=== PATIENT | male | born 1990 | race Caucasian/White ===

== ENCOUNTER 2020-01-20 08:23 | Inpatient (IN) | payer OTHER ==
--- NOTE | 2020-01-20 08:57 | BHS.RME ---
Substance Use & Tx History - Substance Use History Heroin Substance amount: 2- 10 bags Frequency of use: Daily Substance route: Injection (ex: intravenous or skin popping) Date of Last Use: 01/20/20 Nicotine Substance amount: 1 pack Frequency of use: Daily Substance route: Smoking Date of Last Use: 01/20/20 Physical/Psych/Mental Status - Behavior General Behavior: Increased activity (restlessness, agitation) Eye Contact: Normal - Cooperativeness Cooperativeness: Cooperative - Thinking Thought Processes: Tight, Logical, Goal Directed - Physical Health Problems Is patient presently having any pain?: No Does patient presently have any injuries (include location): No Does patient currently have a fever: No Is patient : No COWS - Scale Resting Pulse: 0= [place] 80 or Below Sweatin= Chills/Flushing Restless Observation: 1= Difficult to Sit Still Pupil Size: 1= Pupils >than Normal Bone or Joint Aches: 1= Mild Discomfort Runny Nose/ Eye Tearin= Runny Nose/Eyes GI Upset > 30mins: 2= Nausea/Diarrhea Tremor Observation: 1= Tremor [place], Not Seen Yawning Observation: 1= 1-2x During Session Anxiety or Irritability: 1=Feels Anxious/Irritable Goose Flesh Skin: 3=Piloerection COWS Score: 14
[2020-01-20 09:06] VITALS: BMI 21.1
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
[2020-01-20] MEDS ORDERED: BISMUTH SUBSALICYLATE 524 MG/30 ML UD PO PRN (09:49)
[2020-01-20] MEDS ORDERED: MAG HYDROX/AL HYDROX/SIMETH 30 ML UNIT-DOSE CUP PO PRN (09:49)
[2020-01-20] MEDS ORDERED: MAGNESIUM HYDROX 2400MG/30ML ORAL SUSPENSION 30 ML CUP PO PRN (09:49)
[2020-01-20] MEDS ORDERED: MENTHOL/PHENOL 1 EACH UD MM PRN (09:49)
[2020-01-20] MEDS ORDERED: ONDANSETRON *ODT* 4 MG TABLET SL PRN (09:49)
[2020-01-20] MEDS ORDERED: NICOTINE POLACRILEX 2 MG GUM BUC PRN (09:49)
[2020-01-20] MEDS ORDERED: MAGNESIUM CITRATE 300 ML BOTTLE PO PRN (09:49)
[2020-01-20] MEDS ORDERED: ACETAMINOPHEN 325 MG TABLET (FP) PO PRN ×2 (09:49)
[2020-01-20] MEDS ORDERED: cloNIDine HCL 0.1 MG TABLET PO PRN (09:49)
[2020-01-20] MEDS ORDERED: IBUPROFEN 400 MG TABLET (FP) PO PRN (09:49)
[2020-01-20] MEDS ORDERED: hydrOXYzine PAMOATE 25 MG CAPSULE (FP) PO SCH (10:00)
[2020-01-20] MEDS: PRENATAL VITAMINS W/ FOLIC ACID TABLET (FP) PO SCH (10:42)
[2020-01-20] MEDS: NICOTINE 7 MG/24 HOURS TOPICAL PATCH TD SCH (10:42)
[2020-01-20] MEDS ORDERED: METHADONE HCL 10 MG TABLET (FOR DETOX USE ONLY) PO ONE (10:45)
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
--- NOTE | 2020-01-20 12:41 | EKG ---
Test Reason : Blood Pressure : / mmHG Vent. Rate : 066 BPM Atrial Rate : 066 BPM P-R Int : 134 ms QRS Dur : 098 ms QT Int : 412 ms P-R-T Axes : 018 073 049 degrees QTc Int : 431 ms NORMAL SINUS RHYTHM VOLTAGE CRITERIA FOR LEFT VENTRICULAR HYPERTROPHY NO PREVIOUS ECGS AVAILABLE Confirmed by CLEMENTINA RAMIREZ MD ([id number]) on 01/20/2020 12:40:59 PM Referred By: Confirmed By:CLEMENTINA RAMIREZ MD
[2020-01-20 14:03] LABS: HEMATOCRIT 49.6 % (35.4-49); HEMOGLOBIN 16.9 GM/dL (11.7-16.9); MCH 31.3 pg (25.7-33.7); MEAN CELL VOLUME 92.1 fl (80-96); MEAN PLT VOLUME 8.4 fl (7.5-11.1); PLATELET COUNT 390 K/MM3 (134-434); RBC 5.39 M/mm3 (4.00-5.60); RDW 14.2 % (11.9-15.9)
[2020-01-20 14:31] LABS: ALBUMIN 4.2 g/dl (3.4-5.0); BILIRUBIN,TOTAL 0.4 mg/dL (0.2-1); BLOOD UREA NITROGEN 9.4 mg/dL (7-18); CALCIUM 9.5 mg/dL (8.5-10.1); CREATININE 0.9 mg/dL (0.55-1.3); POTASSIUM 4.2 mmol/L (3.5-5.1); TOT PROT 8.4 g/dl (6.4-8.2)
[2020-01-20] MEDS: busPIRone HCL 10 MG TABLET (FP) PO SCH (22:37)
[2020-01-20] MEDS: MELATONIN 5 MG TABLETS PO SCH (22:37)
[2020-01-20] MEDS: THIAMINE HCL 100 MG TABLET (FP) PO SCH (22:37)
[2020-01-21] MEDS ORDERED: METHADONE HCL 10 MG TABLET (FOR DETOX USE ONLY) ONE (08:39)
[2020-01-21] MEDS ORDERED: METHADONE HCL 5 MG TABLET (FOR DETOX USE ONLY) ONE (08:39)
[2020-01-21] MEDS ORDERED: METHADONE (DETOX) 20 MG, METHADONE (DETOX) 5 MG PO ONE (10:00)
[2020-01-21] MEDS: NICOTINE 7 MG/24 HOURS TOPICAL PATCH TD SCH (10:13)
[2020-01-21] MEDS: busPIRone HCL 10 MG TABLET (FP) PO SCH ×2 (10:14→23:26)
[2020-01-21] MEDS: PRENATAL VITAMINS W/ FOLIC ACID TABLET (FP) PO SCH (10:14)
--- NOTE | 2020-01-21 11:21 | PN ---
BHS COWS - Scale Resting Pulse: 0= [place] 80 or Below Sweatin= Chills/Flushing Restless Observation: 1= Difficult to Sit Still Pupil Size: 0= Normal to Room Light Bone or Joint Aches: 2= Severe Diffuse Aches Runny Nose/ Eye Tearin= Nasal Congestion GI Upset > 30mins: 0= None Tremor Observation of Outstretched Hands: 2= Slight Tremor Visible Yawning Observation: 0= None Anxiety or Irritability: 2=Irritable/Anxious Goose Flesh Skin: 0=Smooth Skin COWS Score: 9 BHS Progress Note (SOAP) Subjective: Complaints of tremors, sweats, anxiety, joints ache and yawning. Objective: 01/21/20 11:20 Vital Signs 01/21/20 01/21/20 05:46 08:58 Temperature 99.5 F 98.6 F Pulse Rate 67 76 Respiratory 18 18 Rate Blood Pressure 107/53 L 114/57 L O2 Sat by Pulse 97 97 Oximetry (%) Laboratory Last Values WBC 8.0 K/mm3 (4.0-10.0) 01/20/20 09:20 RBC 5.39 M/mm3 (4.00-5.60) 01/20/20 09:20 Hgb 16.9 GM/dL (11.7-16.9) 01/20/20 09:20 Hct 49.6 % (35.4-49) H 01/20/20 09:20 MCV 92.1 fl (80-96) 01/20/20 09:20 MCH 31.3 pg (25.7-33.7) 01/20/20 09:20 MCHC 34.0 g/dl (32.0-35.9) 01/20/20 09:20 RDW 14.2 % (11.9-15.9) 01/20/20 09:20 Plt Count 390 K/MM3 (134-434) 01/20/20 09:20 MPV 8.4 fl (7.5-11.1) 01/20/20 09:20 Sodium 138 mmol/L (136-145) 01/20/20 09:20 Potassium 4.2 mmol/L (3.5-5.1) 01/20/20 09:20 Chloride 104 mmol/L (98-107) 01/20/20 09:20 Carbon Dioxide 29 mmol/L (21-32) 01/20/20 09:20 Anion Gap 4 MMOL/L (8-16) L 01/20/20 09:20 BUN 9.4 mg/dL (7-18) 01/20/20 09:20 Creatinine 0.9 mg/dL (0.55-1.3) 01/20/20 09:20 Est GFR (CKD-EPI)AfAm 131.44 01/20/20 09:20 Est GFR (CKD-EPI)NonAf 113.41 01/20/20 09:20 Random Glucose 92 mg/dL (74-106) 01/20/20 09:20 Calcium 9.5 mg/dL (8.5-10.1) 01/20/20 09:20 Total Bilirubin 0.4 mg/dL (0.2-1) 01/20/20 09:20 AST 20 U/L (15-37) 01/20/20 09:20 ALT 39 U/L (13-61) 01/20/20 09:20 Alkaline Phosphatase 60 U/L (45-117) 01/20/20 09:20 Total Protein 8.4 g/dl (6.4-8.2) H 01/20/20 09:20 Albumin 4.2 g/dl (3.4-5.0) 01/20/20 09:20 Syphilis Serology Non-reactive (NONREACTIVE) 01/20/20 09:20 Labs noted. Assessment: 01/21/20 11:20 Alert and oriented x 3, in no acute distress. Full ROM, ambulating in the unit without assistance. Skin was to touch with any lesions. Withdrawal symptoms. Plan: Continue detox protocol.
[2020-01-21] MEDS: diazePAM 5 MG TABLET PO PRN (23:25)
[2020-01-21] MEDS: THIAMINE HCL 100 MG TABLET (FP) PO SCH (23:26)
[2020-01-21] MEDS: MELATONIN 5 MG TABLETS PO SCH (23:27)
[2020-01-22] MEDS ORDERED: METHADONE HCL 10 MG TABLET (FOR DETOX USE ONLY) PO ONE (10:00)
[2020-01-22] MEDS: diazePAM 5 MG TABLET PO PRN ×3 (10:13→23:04)
[2020-01-22] MEDS: PRENATAL VITAMINS W/ FOLIC ACID TABLET (FP) PO SCH (10:14)
[2020-01-22] MEDS: busPIRone HCL 10 MG TABLET (FP) PO SCH ×2 (10:14→22:24)
[2020-01-22] MEDS: NICOTINE 7 MG/24 HOURS TOPICAL PATCH TD SCH (10:14)
[2020-01-22] MEDS: METHOCARBAMOL 500 MG TABLET PO PRN ×2 (14:42→22:24)
--- NOTE | 2020-01-22 16:50 | PN ---
BHS COWS - Scale Resting Pulse: 0= [place] 80 or Below Sweatin= Chills/Flushing Restless Observation: 0= Sits Still Pupil Size: 0= Normal to Room Light Bone or Joint Aches: 2= Severe Diffuse Aches Runny Nose/ Eye Tearin= Runny Nose/Eyes GI Upset > 30mins: 2= Nausea/Diarrhea Tremor Observation of Outstretched Hands: 0= None Yawning Observation: 0= None Anxiety or Irritability: 1=Feels Anxious/Irritable Goose Flesh Skin: 0=Smooth Skin COWS Score: 8 BHS Progress Note (SOAP) Subjective: Restless legs, chills Objective: 01/22/20 16:49 Last Vital Signs Temp Pulse Resp BP Pulse Ox 97.7 F 73 17 129/63 99 01/22/20 12:26 01/22/20 12:26 01/22/20 12:26 01/22/20 12:01/22/20 09:11 Laboratory Tests 01/20/20 01/20/20 01/20/20 09:20 09:20 09:20 WBC 8.0 RBC 5.39 Hgb 16.9 Hct 49.6 H MCV 92.1 MCH 31.3 MCHC 34.0 RDW 14.2 Plt Count 390 MPV 8.4 Sodium 138 Potassium 4.2 Chloride 104 Carbon Dioxide 29 Anion Gap 4 L BUN 9.4 Creatinine 0.9 Est GFR (CKD-EPI)AfAm 131.44 Est GFR (CKD-EPI)NonAf 113.41 Random Glucose 92 Calcium 9.5 Total Bilirubin 0.4 AST 20 ALT 39 Alkaline Phosphatase 60 Total Protein 8.4 H Albumin 4.2 Syphilis Serology Non-reactive COVID-19 (ANISHA) 01/20/20 10:25 WBC RBC Hgb Hct MCV MCH MCHC RDW Plt Count MPV Sodium Potassium Chloride Carbon Dioxide Anion Gap BUN Creatinine Est GFR (CKD-EPI)AfAm Est GFR (CKD-EPI)NonAf Random Glucose Calcium Total Bilirubin AST ALT Alkaline Phosphatase Total Protein Albumin Syphilis Serology COVID-19 (ANISHA) Not detected Labs reviewed Assessment: 01/22/20 16:49 Withdrawal sxs Plan: Continue detox Encourage PO water intake
[2020-01-22] MEDS: THIAMINE HCL 100 MG TABLET (FP) PO SCH (22:24)
[2020-01-22] MEDS: MELATONIN 5 MG TABLETS PO SCH (22:24)
[2020-01-23] MEDS: diazePAM 5 MG TABLET PO PRN ×4 (05:44→18:19)
[2020-01-23] MEDS ORDERED: METHADONE HCL 5 MG TABLET (FOR DETOX USE ONLY) ONE (08:37)
[2020-01-23] MEDS ORDERED: METHADONE HCL 10 MG TABLET (FOR DETOX USE ONLY) ONE (08:37)
--- NOTE | 2020-01-23 09:55 | PN ---
BHS COWS - Scale Resting Pulse: 1= [place] 81-100 Sweatin= Chills/Flushing Restless Observation: 1= Difficult to Sit Still Pupil Size: 0= Normal to Room Light Bone or Joint Aches: 1= Mild Discomfort Runny Nose/ Eye Tearin= Nasal Congestion GI Upset > 30mins: 0= None Tremor Observation of Outstretched Hands: 1= Tremor [place], Not Seen Yawning Observation: 0= None Anxiety or Irritability: 1=Feels Anxious/Irritable Goose Flesh Skin: 0=Smooth Skin COWS Score: 7 BHS Progress Note (SOAP) Subjective: sweats shakes interrupted sleep body aches irritable agitation chills Objective: 01/23/20 09:55 Vital Signs Temperature 98.4 F 01/23/20 08:24 Pulse Rate 90 01/23/20 08:24 Respiratory Rate 18 01/23/20 08:24 Blood Pressure 123/88 01/23/20 08:24 O2 Sat by Pulse Oximetry (%) 97 01/23/20 08:24 Laboratory Tests 01/20/20 01/20/20 01/20/20 09:20 09:20 09:20 WBC 8.0 RBC 5.39 Hgb 16.9 Hct 49.6 H MCV 92.1 MCH 31.3 MCHC 34.0 RDW 14.2 Plt Count 390 MPV 8.4 Sodium 138 Potassium 4.2 Chloride 104 Carbon Dioxide 29 Anion Gap 4 L BUN 9.4 Creatinine 0.9 Est GFR (CKD-EPI)AfAm 131.44 Est GFR (CKD-EPI)NonAf 113.41 Random Glucose 92 Calcium 9.5 Total Bilirubin 0.4 AST 20 ALT 39 Alkaline Phosphatase 60 Total Protein 8.4 H Albumin 4.2 Syphilis Serology Non-reactive COVID-19 (ANISHA) 01/20/20 10:25 WBC RBC Hgb Hct MCV MCH MCHC RDW Plt Count MPV Sodium Potassium Chloride Carbon Dioxide Anion Gap BUN Creatinine Est GFR (CKD-EPI)AfAm Est GFR (CKD-EPI)NonAf Random Glucose Calcium Total Bilirubin AST ALT Alkaline Phosphatase Total Protein Albumin Syphilis Serology COVID-19 (ANISHA) Not detected labs noted aaox3 ambulating no acute distress Assessment: 01/23/20 09:56 withdrawals Plan: continue detox increase fluids
[2020-01-23] MEDS ORDERED: METHADONE (DETOX) 10 MG, METHADONE (DETOX) 5 MG PO ONE (10:00)
[2020-01-23] MEDS: NICOTINE 7 MG/24 HOURS TOPICAL PATCH TD SCH (10:07)
[2020-01-23] MEDS: busPIRone HCL 10 MG TABLET (FP) PO SCH ×2 (10:07→22:00)
[2020-01-23] MEDS: PRENATAL VITAMINS W/ FOLIC ACID TABLET (FP) PO SCH (10:07)
[2020-01-23] MEDS: METHOCARBAMOL 500 MG TABLET PO PRN (14:14)
[2020-01-23] MEDS ORDERED: COLLOIDAL OATMEAL 1 BAR EACH TP PRN (17:54)
[2020-01-23] MEDS: hydrOXYzine PAMOATE 25 MG CAPSULE (FP) PO PRN (18:19)
[2020-01-23] MEDS: THIAMINE HCL 100 MG TABLET (FP) PO SCH (22:00)
[2020-01-23] MEDS: MELATONIN 5 MG TABLETS PO SCH (22:01)
[2020-01-24] MEDS: diazePAM 5 MG TABLET PO PRN (05:55)
[2020-01-24] MEDS: METHOCARBAMOL 500 MG TABLET PO PRN (06:28)
[2020-01-24] MEDS: hydrOXYzine PAMOATE 25 MG CAPSULE (FP) PO PRN (08:51)
[2020-01-24] MEDS: busPIRone HCL 10 MG TABLET (FP) PO SCH (08:53)
--- NOTE | 2020-01-24 08:53 | DS ---
[facility] Detox Discharge Summary Admission Date: 01/20/20 Discharge Date: 01/24/20 - History Present History: Alcohol Dependence, Opioid Dependence, Sedative Dependence - Physical Exam Results Vital Signs: Vital Signs Temperature 96.9 F L 01/24/20 06:20 Pulse Rate 72 01/24/20 06:20 Respiratory Rate 18 01/24/20 06:20 Blood Pressure 111/79 01/24/20 06:20 O2 Sat by Pulse Oximetry (%) 95 01/24/20 06:20 Pertinent Admission Physical Exam Findings: Vital Signs Temperature 96.9 F L 01/24/20 06:20 Pulse Rate 72 01/24/20 06:20 Respiratory Rate 18 01/24/20 06:20 Blood Pressure 111/79 01/24/20 06:20 O2 Sat by Pulse Oximetry (%) 95 01/24/20 06:20 Laboratory Tests 01/20/20 01/20/20 01/20/20 09:20 09:20 09:20 WBC 8.0 RBC 5.39 Hgb 16.9 Hct 49.6 H MCV 92.1 MCH 31.3 MCHC 34.0 RDW 14.2 Plt Count 390 MPV 8.4 Sodium 138 Potassium 4.2 Chloride 104 Carbon Dioxide 29 Anion Gap 4 L BUN 9.4 Creatinine 0.9 Est GFR (CKD-EPI)AfAm 131.44 Est GFR (CKD-EPI)NonAf 113.41 Random Glucose 92 Calcium 9.5 Total Bilirubin 0.4 AST 20 ALT 39 Alkaline Phosphatase 60 Total Protein 8.4 H Albumin 4.2 Syphilis Serology Non-reactive COVID-19 (ANISHA) 01/20/20 10:25 WBC RBC Hgb Hct MCV MCH MCHC RDW Plt Count MPV Sodium Potassium Chloride Carbon Dioxide Anion Gap BUN Creatinine Est GFR (CKD-EPI)AfAm Est GFR (CKD-EPI)NonAf Random Glucose Calcium Total Bilirubin AST ALT Alkaline Phosphatase Total Protein Albumin Syphilis Serology COVID-19 (ANISHA) Not detected labs noted aaox3 ambulating no acute distress lungs CTA - Treatment Hospital Course: Detox Protocol Followed, Detoxed Safely, Responded well, Discharged Condition Good, Rehab Referral Accepted - Medication Discharge Medications: Ambulatory Orders Bupropion HCl [Wellbutrin Sr] 150 mg PO BID 01/20/20 Buspirone HCl [Buspar -] 10 mg PO BID 01/20/20 - Diagnosis (1) Alcohol use disorder, mild, abuse Current Visit: Yes Status: Acute (2) MDD (major depressive disorder) Current Visit: Yes Status: Acute (3) Nicotine dependence Current Visit: Yes Status: Acute Qualifiers: Nicotine product type: cigarettes Substance use status: uncomplicated Qualified Code(s): F17.210 - Nicotine dependence, cigarettes, uncomplicated (4) Opioid dependence with withdrawal Current Visit: Yes Status: Chronic (5) Sedative, hypnotic or anxiolytic use disorder, mild, abuse Current Visit: Yes Status: Chronic (6) Substance induced mood disorder Current Visit: Yes Status: Acute (7) Substance-induced sleep disorder Current Visit: Yes Status: Acute (8) Depressive disorder Current Visit: Yes Status: Chronic - AMA Did Patient Leave Against Medical Advice: No
[2020-01-24] MEDS ORDERED: METHADONE HCL 10 MG TABLET (FOR DETOX USE ONLY) PO ONE ×2 (09:00→10:00)
[2020-01-24 09:13] VITALS: BP 133/78; PULSE 102; TEMP 98.1
[2020-01-24] MEDS: PRENATAL VITAMINS W/ FOLIC ACID TABLET (FP) PO SCH (09:20)
[2020-01-24] MEDS: NICOTINE 7 MG/24 HOURS TOPICAL PATCH TD SCH (09:20)
[2020-01-25] MEDS ORDERED: METHADONE HCL 5 MG TABLET (FOR DETOX USE ONLY) PO ONE (06:00)
== END 2020-01-24 09:15 | disposition home or self-care (01) | DRG 773 ==
LOC: YASAS 08:23 → Y6N 09:15
PROVIDERS: ADMIT Allergy & Immunology; ATTEND Allergy & Immunology
PROC: HZ2ZZZZ Detoxification Services for Substance Abuse Treatment (ICD-10-PCS; principal; 2020-01-20)
DX: F11.23 Opioid dependence with withdrawal (principal); F10.10 Alcohol abuse, uncomplicated; F13.10 Sedative, hypnotic or anxiolytic abuse, uncomplicated; F14.10 Cocaine abuse, uncomplicated; F12.20 Cannabis dependence, uncomplicated; F19.282 Other psychoactive substance dependence with psychoactive substance-induced sleep disorder; F19.24 Other psychoactive substance dependence with psychoactive substance-induced mood disorder; F32.9 Major depressive disorder, single episode, unspecified; Z87.81 Personal history of (healed) traumatic fracture; Z56.0 Unemployment, unspecified
CPT/HCPCS: 36415; 71046-TC-FY; 80053; 85027; 86780; 93005; 93010; U0003

== ENCOUNTER 2020-04-16 08:14 | Inpatient (IN) | payer OTHER ==
[2020-04-16 08:56] VITALS: BMI 23.1
[2020-04-16] MEDS ORDERED: MAG HYDROX/AL HYDROX/SIMETH 30 ML UNIT-DOSE CUP PO PRN (09:22)
[2020-04-16] MEDS ORDERED: MAGNESIUM CITRATE 300 ML BOTTLE PO PRN (09:22)
[2020-04-16] MEDS ORDERED: MAGNESIUM HYDROX 2400MG/30ML ORAL SUSPENSION 30 ML CUP PO PRN (09:22)
[2020-04-16] MEDS ORDERED: METHOCARBAMOL 500 MG TABLET PO PRN (09:22)
[2020-04-16] MEDS ORDERED: ACETAMINOPHEN 325 MG TABLET (FP) PO PRN ×2 (09:22)
[2020-04-16] MEDS ORDERED: cloNIDine HCL 0.1 MG TABLET PO PRN (09:22)
[2020-04-16] MEDS ORDERED: NICOTINE POLACRILEX 2 MG GUM BUC PRN (09:22)
[2020-04-16] MEDS ORDERED: BISMUTH SUBSALICYLATE 524 MG/30 ML UD PO PRN (09:22)
[2020-04-16] MEDS ORDERED: IBUPROFEN 400 MG TABLET (FP) PO PRN (09:22)
[2020-04-16] MEDS ORDERED: MENTHOL/PHENOL 1 EACH UD MM PRN (09:22)
[2020-04-16] MEDS ORDERED: ONDANSETRON *ODT* 4 MG TABLET SL PRN (09:22)
[2020-04-16] MEDS ORDERED: METHADONE HCL 10 MG TABLET (FOR DETOX USE ONLY) PO ONE (10:00)
[2020-04-16] MEDS: hydrOXYzine PAMOATE 25 MG CAPSULE (FP) PO SCH ×4 (10:44→22:53)
[2020-04-16] MEDS: PRENATAL VITAMINS W/ FOLIC ACID TABLET (FP) PO SCH (10:44)
[2020-04-16] MEDS: NICOTINE 21 MG/24 HOURS TOPICAL PATCH TD SCH (10:44)
[2020-04-16 14:16] LABS: HEMATOCRIT 46.7 % (35.4-49); HEMOGLOBIN 15.3 GM/dL (11.7-16.9); MCH 30.3 pg (25.7-33.7); MCHC 32.9 g/dl (32.0-35.9); MEAN CELL VOLUME 92.1 fl (80-96); MEAN PLT VOLUME 8.4 fl (7.5-11.1); PLATELET COUNT 305 K/MM3 (134-434); RBC 5.07 M/mm3 (4.00-5.60); RDW 14.4 % (11.9-15.9); WHITE BLOOD COUNT 10.5 K/mm3 (4.0-10.0)
[2020-04-16 14:19] LABS: CALCIUM 9.4 mg/dL (8.5-10.1)
[2020-04-16 14:20] LABS: BLOOD UREA NITROGEN 16.1 mg/dL (7-18)
[2020-04-16 14:23] LABS: CREATININE 0.9 mg/dL (0.55-1.3)
[2020-04-16 14:24] LABS: TOT PROT 7.6 g/dl (6.4-8.2)
[2020-04-16] MEDS: busPIRone HCL 10 MG TABLET (FP) PO SCH (22:52)
[2020-04-16] MEDS: MELATONIN 5 MG TABLETS PO SCH (22:52)
[2020-04-16] MEDS: THIAMINE HCL 100 MG TABLET (FP) PO SCH (22:53)
[2020-04-17] MEDS: hydrOXYzine PAMOATE 25 MG CAPSULE (FP) PO SCH ×5 (06:40→23:14)
[2020-04-17] MEDS ORDERED: METHADONE HCL 10 MG TABLET (FOR DETOX USE ONLY) ONE (09:44)
[2020-04-17] MEDS ORDERED: METHADONE HCL 5 MG TABLET (FOR DETOX USE ONLY) ONE (09:44)
[2020-04-17] MEDS ORDERED: METHADONE (DETOX) 20 MG, METHADONE (DETOX) 5 MG PO ONE (10:00)
[2020-04-17] MEDS: NICOTINE 21 MG/24 HOURS TOPICAL PATCH TD SCH (10:50)
[2020-04-17] MEDS: PRENATAL VITAMINS W/ FOLIC ACID TABLET (FP) PO SCH (10:50)
[2020-04-17] MEDS: busPIRone HCL 10 MG TABLET (FP) PO SCH ×2 (10:50→23:13)
[2020-04-17] MEDS: THIAMINE HCL 100 MG TABLET (FP) PO SCH (23:14)
[2020-04-17] MEDS: MELATONIN 5 MG TABLETS PO SCH (23:14)
[2020-04-18] MEDS: hydrOXYzine PAMOATE 25 MG CAPSULE (FP) PO SCH ×5 (07:14→22:24)
[2020-04-18] MEDS ORDERED: METHADONE HCL 10 MG TABLET (FOR DETOX USE ONLY) PO ONE (10:00)
[2020-04-18] MEDS: PRENATAL VITAMINS W/ FOLIC ACID TABLET (FP) PO SCH (10:29)
[2020-04-18] MEDS: NICOTINE 21 MG/24 HOURS TOPICAL PATCH TD SCH (10:29)
[2020-04-18] MEDS: busPIRone HCL 10 MG TABLET (FP) PO SCH ×2 (10:29→22:24)
[2020-04-18] MEDS: diazePAM 5 MG TABLET PO PRN ×3 (10:31→22:23)
[2020-04-18 11:00] LABS: HEMATOCRIT 45.9 % (35.4-49); HEMOGLOBIN 15.2 GM/dL (11.7-16.9); MCH 30.4 pg (25.7-33.7); MCHC 33.1 g/dl (32.0-35.9); MEAN PLT VOLUME 8.6 fl (7.5-11.1); PLATELET COUNT 258 K/MM3 (134-434); RBC 4.99 M/mm3 (4.00-5.60); RDW 14.7 % (11.9-15.9); WHITE BLOOD COUNT 8.4 K/mm3 (4.0-10.0)
[2020-04-18] MEDS: THIAMINE HCL 100 MG TABLET (FP) PO SCH (22:23)
[2020-04-18] MEDS: MELATONIN 5 MG TABLETS PO SCH (22:24)
[2020-04-19] MEDS: hydrOXYzine PAMOATE 25 MG CAPSULE (FP) PO SCH ×5 (06:25→22:48)
[2020-04-19] MEDS: diazePAM 5 MG TABLET PO PRN ×4 (07:26→20:22)
[2020-04-19] MEDS ORDERED: METHADONE HCL 5 MG TABLET (FOR DETOX USE ONLY) ONE (09:19)
[2020-04-19] MEDS ORDERED: METHADONE HCL 10 MG TABLET (FOR DETOX USE ONLY) ONE (09:19)
[2020-04-19] MEDS ORDERED: METHADONE (DETOX) 10 MG, METHADONE (DETOX) 5 MG PO ONE (10:00)
[2020-04-19] MEDS: PRENATAL VITAMINS W/ FOLIC ACID TABLET (FP) PO SCH (10:31)
[2020-04-19] MEDS: busPIRone HCL 10 MG TABLET (FP) PO SCH ×2 (10:31→22:48)
[2020-04-19] MEDS: NICOTINE 21 MG/24 HOURS TOPICAL PATCH TD SCH (10:31)
[2020-04-19] MEDS: THIAMINE HCL 100 MG TABLET (FP) PO SCH (21:00)
[2020-04-19] MEDS: MELATONIN 5 MG TABLETS PO SCH (22:48)
[2020-04-20] MEDS: diazePAM 5 MG TABLET PO PRN (05:35)
[2020-04-20] MEDS: hydrOXYzine PAMOATE 25 MG CAPSULE (FP) PO SCH ×2 (05:35→09:24)
[2020-04-20] MEDS: busPIRone HCL 10 MG TABLET (FP) PO SCH (09:24)
[2020-04-20] MEDS: NICOTINE 21 MG/24 HOURS TOPICAL PATCH TD SCH (09:25)
[2020-04-20] MEDS: PRENATAL VITAMINS W/ FOLIC ACID TABLET (FP) PO SCH (09:25)
[2020-04-20 09:34] VITALS: BP 127/75; PULSE 110; TEMP 98
[2020-04-20] MEDS ORDERED: METHADONE HCL 10 MG TABLET (FOR DETOX USE ONLY) PO ONE (10:00)
[2020-04-21] MEDS ORDERED: METHADONE HCL 5 MG TABLET (FOR DETOX USE ONLY) PO ONE (06:00)
== END 2020-04-20 11:00 | disposition home or self-care (01) | DRG 773 ==
LOC: YASAS 08:14 → Y6N 09:11
PROVIDERS: ADMIT Allergy & Immunology; ATTEND Allergy & Immunology
PROC: HZ2ZZZZ Detoxification Services for Substance Abuse Treatment (ICD-10-PCS; principal; 2020-04-16)
DX: F11.23 Opioid dependence with withdrawal (principal); F13.230 Sedative, hypnotic or anxiolytic dependence with withdrawal, uncomplicated; F14.20 Cocaine dependence, uncomplicated; F10.10 Alcohol abuse, uncomplicated; F17.210 Nicotine dependence, cigarettes, uncomplicated; F31.9 Bipolar disorder, unspecified; F19.24 Other psychoactive substance dependence with psychoactive substance-induced mood disorder; F19.282 Other psychoactive substance dependence with psychoactive substance-induced sleep disorder; R76.11 Nonspecific reaction to tuberculin skin test without active tuberculosis
CPT/HCPCS: 36415; 80053; 82947; 85027; 86780; C9803; J0735; U0003

== ENCOUNTER 2020-05-10 09:33 | Inpatient (IN) | payer OTHER ==
[2020-05-10 10:12] VITALS: BMI 23.5
[2020-05-10] MEDS ORDERED: MENTHOL/PHENOL 1 EACH UD MM PRN (10:37)
[2020-05-10] MEDS ORDERED: METHOCARBAMOL 500 MG TABLET PO PRN (10:37)
[2020-05-10] MEDS ORDERED: ONDANSETRON *ODT* 4 MG TABLET SL PRN (10:37)
[2020-05-10] MEDS ORDERED: IBUPROFEN 400 MG TABLET (FP) PO PRN (10:37)
[2020-05-10] MEDS ORDERED: MAG HYDROX/AL HYDROX/SIMETH 30 ML UNIT-DOSE CUP PO PRN (10:37)
[2020-05-10] MEDS ORDERED: cloNIDine HCL 0.1 MG TABLET PO PRN (10:37)
[2020-05-10] MEDS ORDERED: NICOTINE POLACRILEX 2 MG GUM BUC PRN (10:37)
[2020-05-10] MEDS ORDERED: methaDONE HCL 10 MG TABLET (FOR DETOX USE ONLY) PO ONE (10:37)
[2020-05-10] MEDS ORDERED: MAGNESIUM CITRATE 300 ML BOTTLE PO PRN (10:37)
[2020-05-10] MEDS ORDERED: ACETAMINOPHEN 325 MG TABLET (FP) PO PRN ×2 (10:37)
[2020-05-10] MEDS ORDERED: MAGNESIUM HYDROX 2400MG/30ML ORAL SUSPENSION 30 ML CUP PO PRN (10:37)
[2020-05-10] MEDS ORDERED: BISMUTH SUBSALICYLATE 262 MG/15 ML BTL PO PRN (10:37)
[2020-05-10] MEDS: PRENATAL VITAMINS W/ FOLIC ACID TABLET (FP) PO SCH (11:47)
[2020-05-10] MEDS: hydrOXYzine PAMOATE 25 MG CAPSULE (FP) PO SCH ×3 (14:06→22:17)
[2020-05-10 16:20] LABS: HEMATOCRIT 40.3 % (35.4-49); HEMOGLOBIN 13.5 GM/dL (11.7-16.9); MCH 30.7 pg (25.7-33.7); MCHC 33.4 g/dl (32.0-35.9); MEAN CELL VOLUME 92.1 fl (80-96); MEAN PLT VOLUME 7.8 fl (7.5-11.1); PLATELET COUNT 329 K/MM3 (134-434); RBC 4.38 M/mm3 (4.00-5.60); RDW 14.3 % (11.9-15.9); WHITE BLOOD COUNT 8.1 K/mm3 (4.0-10.0)
[2020-05-10 16:33] LABS: BLOOD UREA NITROGEN 16.9 mg/dL (7-18); CREATININE 0.8 mg/dL (0.55-1.3)
[2020-05-10 16:34] LABS: ALBUMIN 3.6 g/dl (3.4-5.0)
[2020-05-10 16:35] LABS: TOT PROT 7.2 g/dl (6.4-8.2)
[2020-05-10 16:42] LABS: BILIRUBIN,TOTAL 0.4 mg/dL (0.2-1)
[2020-05-10] MEDS: THIAMINE HCL 100 MG TABLET (FP) PO SCH (22:17)
[2020-05-10] MEDS: MELATONIN 5 MG TABLETS PO SCH (22:17)
[2020-05-11] MEDS: hydrOXYzine PAMOATE 25 MG CAPSULE (FP) PO SCH ×5 (06:19→22:41)
[2020-05-11] MEDS ORDERED: methaDONE HCL 10 MG TABLET (FOR DETOX USE ONLY) ONE (09:03)
[2020-05-11] MEDS ORDERED: diazePAM 5 MG TABLET PO PRN (09:25)
[2020-05-11] MEDS: PRENATAL VITAMINS W/ FOLIC ACID TABLET (FP) PO SCH (09:26)
[2020-05-11] MEDS: NICOTINE 21 MG/24 HOURS TOPICAL PATCH TD SCH (10:15)
[2020-05-11] MEDS: MELATONIN 5 MG TABLETS PO SCH (22:41)
[2020-05-11] MEDS: THIAMINE HCL 100 MG TABLET (FP) PO SCH (22:41)
[2020-05-12] MEDS: hydrOXYzine PAMOATE 25 MG CAPSULE (FP) PO SCH ×5 (07:00→22:36)
[2020-05-12] MEDS: PRENATAL VITAMINS W/ FOLIC ACID TABLET (FP) PO SCH (09:25)
[2020-05-12] MEDS: NICOTINE 21 MG/24 HOURS TOPICAL PATCH TD SCH (09:25)
[2020-05-12] MEDS ORDERED: methaDONE HCL 10 MG TABLET (FOR DETOX USE ONLY) PO ONE (10:00)
[2020-05-12] MEDS: MELATONIN 5 MG TABLETS PO SCH (22:36)
[2020-05-12] MEDS: THIAMINE HCL 100 MG TABLET (FP) PO SCH (22:36)
[2020-05-13] MEDS: hydrOXYzine PAMOATE 25 MG CAPSULE (FP) PO SCH ×5 (06:19→22:00)
[2020-05-13] MEDS ORDERED: methaDONE HCL 10 MG TABLET (FOR DETOX USE ONLY) ONE (08:43)
[2020-05-13] MEDS: PRENATAL VITAMINS W/ FOLIC ACID TABLET (FP) PO SCH (09:20)
[2020-05-13] MEDS: NICOTINE 21 MG/24 HOURS TOPICAL PATCH TD SCH (09:20)
[2020-05-13] MEDS ORDERED: cloNIDine HCL 0.1 MG TABLET PO PRN (11:07)
[2020-05-13] MEDS: MELATONIN 5 MG TABLETS PO SCH (22:00)
[2020-05-13] MEDS: THIAMINE HCL 100 MG TABLET (FP) PO SCH (22:00)
[2020-05-14] MEDS: hydrOXYzine PAMOATE 25 MG CAPSULE (FP) PO SCH ×2 (05:59→09:10)
[2020-05-14] MEDS: PRENATAL VITAMINS W/ FOLIC ACID TABLET (FP) PO SCH (09:08)
[2020-05-14 09:10] VITALS: BP 120/80; PULSE 116; TEMP 97.8
[2020-05-14] MEDS: NICOTINE 21 MG/24 HOURS TOPICAL PATCH TD SCH (09:10)
[2020-05-14] MEDS ORDERED: methaDONE HCL 10 MG TABLET (FOR DETOX USE ONLY) PO ONE (10:00)
== END 2020-05-14 09:26 | disposition home or self-care (01) | DRG 773 ==
LOC: YASAS 09:33 → Y3N 10:28
PROVIDERS: ADMIT Allergy & Immunology; ATTEND Allergy & Immunology
PROC: HZ2ZZZZ Detoxification Services for Substance Abuse Treatment (ICD-10-PCS; principal; 2020-05-10)
DX: F11.23 Opioid dependence with withdrawal (principal); F14.20 Cocaine dependence, uncomplicated; F13.20 Sedative, hypnotic or anxiolytic dependence, uncomplicated; F12.20 Cannabis dependence, uncomplicated; F17.210 Nicotine dependence, cigarettes, uncomplicated; F41.9 Anxiety disorder, unspecified; F43.10 Post-traumatic stress disorder, unspecified; F32.9 Major depressive disorder, single episode, unspecified; R76.11 Nonspecific reaction to tuberculin skin test without active tuberculosis; R74.01 Elevation of levels of liver transaminase levels; S42.101D Fracture of unspecified part of scapula, right shoulder, subsequent encounter for fracture with routine healing; X58.XXXD Exposure to other specified factors, subsequent encounter; Z98.890 Other specified postprocedural states
CPT/HCPCS: 36415; 80053; 85027; 86780; C9803; U0003

== ENCOUNTER 2021-05-30 11:17 | Inpatient (IN) | payer OTHER ==
[2021-05-30] MEDS ORDERED: MAG HYDROX/AL HYDROX/SIMETH 30 ML UNIT-DOSE CUP PO PRN (12:39)
[2021-05-30] MEDS ORDERED: BISMUTH SUBSALICYLATE 262 MG/15 ML BTL PO PRN (12:39)
[2021-05-30] MEDS ORDERED: MAGNESIUM CITRATE 300 ML BOTTLE PO PRN (12:39)
[2021-05-30] MEDS ORDERED: ONDANSETRON *ODT* 4 MG TABLET SL PRN (12:39)
[2021-05-30] MEDS ORDERED: MENTHOL/PHENOL 1 EACH UD MM PRN (12:39)
[2021-05-30] MEDS ORDERED: MAGNESIUM HYDROX 2400MG/30ML ORAL SUSPENSION 30 ML CUP PO PRN (12:39)
[2021-05-30] MEDS ORDERED: ACETAMINOPHEN 325 MG TABLET (FP) PO PRN ×2 (12:39)
[2021-05-30] MEDS ORDERED: IBUPROFEN 400 MG TABLET (FP) PO PRN (12:39)
[2021-05-30 13:12] VITALS: BMI 24.7
[2021-05-30] MEDS ORDERED: diazePAM 5 MG TABLET ONE (15:02)
[2021-05-30] MEDS: diazePAM 5 MG TABLET PO PRN (15:07)
[2021-05-30] MEDS: hydrOXYzine PAMOATE 25 MG CAPSULE (FP) PO SCH ×3 (15:40→22:19)
[2021-05-30 17:06] LABS: HEMATOCRIT 43.6 % (35.4-49); HEMOGLOBIN 14.6 GM/dL (11.7-16.9); MCH 28.9 pg (25.7-33.7); MCHC 33.5 g/dl (32.0-35.9); MEAN CELL VOLUME 86.3 fl (80-96); MEAN PLT VOLUME 8.4 fl (7.5-11.1); PLATELET COUNT 273 10^3/uL (134-434); RBC 5.05 M/mm3 (4.00-5.60); RDW 15.7 % (11.9-15.9); WHITE BLOOD COUNT 7.3 K/mm3 (4.0-10.0)
[2021-05-30 17:11] LABS: CALCIUM 9.2 mg/dL (8.5-10.1)
[2021-05-30 17:12] LABS: ALBUMIN 4.1 g/dl (3.4-5.0); BLOOD UREA NITROGEN 5.8 mg/dL (7-18)
[2021-05-30 17:16] LABS: BILIRUBIN,TOTAL 0.3 mg/dL (0.2-1)
[2021-05-30 17:17] LABS: TOT PROT 7.6 g/dl (6.4-8.2)
[2021-05-30] MEDS: diazePAM 5 MG TABLET PO SCH ×2 (17:27→22:19)
[2021-05-30] MEDS: METHOCARBAMOL 500 MG TABLET PO PRN ×2 (17:27→17:32)
[2021-05-30] MEDS: NICOTINE 10 MG CARTRIDGE (INHALER) IH PRN (17:27)
[2021-05-30] MEDS ORDERED: MELATONIN 5 MG TABLETS PO SCH (22:00)
[2021-05-30] MEDS: MELATONIN 5 MG TABLETS PO SCH (22:19)
[2021-05-30] MEDS: MIRTAZAPINE 15 MG TABLET (FP) PO SCH (22:19)
[2021-05-30] MEDS: THIAMINE HCL 100 MG TABLET (FP) PO SCH (22:19)
[2021-05-31] MEDS ORDERED: methaDONE HCL 40 MG DISPERSABLE TABLET ONE (04:26)
[2021-05-31] MEDS ORDERED: methaDONE HCL 10 MG TABLET ONE (04:26)
[2021-05-31] MEDS: diazePAM 5 MG TABLET PO SCH ×4 (05:28→23:00)
[2021-05-31] MEDS: hydrOXYzine PAMOATE 25 MG CAPSULE (FP) PO SCH ×5 (05:28→23:00)
[2021-05-31] MEDS ORDERED: methaDONE HCL 10 MG TABLET PO SCH (06:00)
[2021-05-31] MEDS: METHOCARBAMOL 500 MG TABLET PO PRN ×3 (11:06→23:00)
[2021-05-31] MEDS: PRENATAL VITAMINS W/ FOLIC ACID TABLET (FP) PO SCH (11:06)
[2021-05-31] MEDS: NICOTINE 14 MG/24 HOURS TOPICAL PATCH TD SCH (11:06)
[2021-05-31] MEDS: diazePAM 5 MG TABLET PO PRN (13:26)
[2021-05-31] MEDS: THIAMINE HCL 100 MG TABLET (FP) PO SCH (22:59)
[2021-05-31] MEDS: MIRTAZAPINE 15 MG TABLET (FP) PO SCH (23:00)
[2021-05-31] MEDS: MELATONIN 5 MG TABLETS PO SCH (23:00)
[2021-06-01] MEDS ORDERED: methaDONE HCL 40 MG DISPERSABLE TABLET ONE (06:07)
[2021-06-01] MEDS ORDERED: methaDONE HCL 10 MG TABLET ONE (06:07)
[2021-06-01] MEDS: hydrOXYzine PAMOATE 25 MG CAPSULE (FP) PO SCH ×5 (06:08→22:14)
[2021-06-01] MEDS: diazePAM 5 MG TABLET PO SCH ×3 (06:09→22:16)
[2021-06-01] MEDS: NICOTINE 14 MG/24 HOURS TOPICAL PATCH TD SCH (10:47)
[2021-06-01] MEDS: PRENATAL VITAMINS W/ FOLIC ACID TABLET (FP) PO SCH (10:48)
[2021-06-01] MEDS: diazePAM 5 MG TABLET PO PRN ×2 (10:48→17:45)
[2021-06-01] MEDS: MELATONIN 5 MG TABLETS PO SCH (22:14)
[2021-06-01] MEDS: THIAMINE HCL 100 MG TABLET (FP) PO SCH (22:14)
[2021-06-01] MEDS: MIRTAZAPINE 15 MG TABLET (FP) PO SCH (22:14)
[2021-06-02] MEDS: diazePAM 5 MG TABLET PO SCH ×2 (07:01→17:17)
[2021-06-02] MEDS: hydrOXYzine PAMOATE 25 MG CAPSULE (FP) PO SCH ×5 (07:01→22:24)
[2021-06-02] MEDS ORDERED: methaDONE HCL 10 MG TABLET ONE (07:03)
[2021-06-02] MEDS ORDERED: methaDONE HCL 40 MG DISPERSABLE TABLET ONE (07:03)
[2021-06-02] MEDS: NICOTINE 10 MG CARTRIDGE (INHALER) IH PRN (07:08)
[2021-06-02] MEDS: NICOTINE 14 MG/24 HOURS TOPICAL PATCH TD SCH (09:42)
[2021-06-02] MEDS: METHOCARBAMOL 500 MG TABLET PO PRN (09:42)
[2021-06-02] MEDS: diazePAM 5 MG TABLET PO PRN (09:43)
[2021-06-02] MEDS: PRENATAL VITAMINS W/ FOLIC ACID TABLET (FP) PO SCH (09:44)
[2021-06-02] MEDS: MELATONIN 5 MG TABLETS PO SCH (22:23)
[2021-06-02] MEDS: MIRTAZAPINE 15 MG TABLET (FP) PO SCH (22:23)
[2021-06-02] MEDS: THIAMINE HCL 100 MG TABLET (FP) PO SCH (22:24)
[2021-06-03] MEDS ORDERED: methaDONE HCL 40 MG DISPERSABLE TABLET ONE (04:12)
[2021-06-03] MEDS ORDERED: methaDONE HCL 10 MG TABLET ONE (04:12)
[2021-06-03] MEDS: hydrOXYzine PAMOATE 25 MG CAPSULE (FP) PO SCH (05:22)
[2021-06-03] MEDS ORDERED: diazePAM 5 MG TABLET PO ONE (06:00)
[2021-06-03] MEDS: NICOTINE 10 MG CARTRIDGE (INHALER) IH PRN (07:38)
[2021-06-03 09:09] VITALS: BP 100/60; PULSE 74; TEMP 97.7
== END 2021-06-03 09:04 | disposition home or self-care (01) | DRG 773 ==
LOC: YASAS 11:17 → Y6N 15:11
PROVIDERS: ADMIT Allergy & Immunology; ATTEND Allergy & Immunology
PROC: HZ2ZZZZ Detoxification Services for Substance Abuse Treatment (ICD-10-PCS; principal; 2021-05-30)
DX: F13.230 Sedative, hypnotic or anxiolytic dependence with withdrawal, uncomplicated (principal); F11.20 Opioid dependence, uncomplicated; F14.10 Cocaine abuse, uncomplicated; F12.10 Cannabis abuse, uncomplicated; F17.210 Nicotine dependence, cigarettes, uncomplicated; F19.282 Other psychoactive substance dependence with psychoactive substance-induced sleep disorder; F19.24 Other psychoactive substance dependence with psychoactive substance-induced mood disorder; F41.9 Anxiety disorder, unspecified; B18.2 Chronic viral hepatitis C; R76.11 Nonspecific reaction to tuberculin skin test without active tuberculosis; R73.9 Hyperglycemia, unspecified; Z87.820 Personal history of traumatic brain injury; Z91.013 Allergy to seafood; Z88.8 Allergy status to other drugs, medicaments and biological substances; Z59.02 Unsheltered homelessness
CPT/HCPCS: 36415; 80053; 82962; 85027; 86780; C9803; U0003; U0005

== ENCOUNTER 2021-08-22 08:31 | Inpatient (IN) | payer OTHER ==
[2021-08-22 09:10] VITALS: BMI 25.7
[2021-08-22] MEDS ORDERED: BUPRENORPHINE HCL 150 MCG, BUPRENORPHINE HCL 75 MCG BC PRN (10:09)
[2021-08-22] MEDS ORDERED: cloNIDine HCL 0.1 MG TABLET PO ONE (10:09)
[2021-08-22] MEDS ORDERED: ACETAMINOPHEN 325 MG TABLET (FP) PO PRN ×2 (10:09)
[2021-08-22] MEDS ORDERED: DICYCLOMINE HCL 10 MG CAPSULE PO PRN (10:09)
[2021-08-22] MEDS ORDERED: NICOTINE 10 MG CARTRIDGE (INHALER) IH PRN (10:09)
[2021-08-22] MEDS ORDERED: BISMUTH SUBSALICYLATE 262 MG/15 ML BTL PO PRN (10:09)
[2021-08-22] MEDS ORDERED: MAG HYDROX/AL HYDROX/SIMETH 30 ML UNIT-DOSE CUP PO PRN (10:09)
[2021-08-22] MEDS ORDERED: diazePAM 5 MG TABLET PO PRN ×2 (10:09→12:02)
[2021-08-22] MEDS ORDERED: MAGNESIUM CITRATE 300 ML BOTTLE PO PRN (10:09)
[2021-08-22] MEDS ORDERED: BENZOCAINE/MENTHOL (CHLORASEPTIC ) LOZENGE MM PRN (10:09)
[2021-08-22] MEDS ORDERED: IBUPROFEN 400 MG TABLET (FP) PO PRN (10:09)
[2021-08-22] MEDS ORDERED: ONDANSETRON *ODT* 4 MG TABLET SL PRN (10:09)
[2021-08-22] MEDS ORDERED: MAGNESIUM HYDROX 2400MG/30ML ORAL SUSPENSION 30 ML CUP PO PRN (10:09)
[2021-08-22] MEDS ORDERED: LOPERAMIDE HCL 2 MG CAPSULE PO PRN (10:09)
[2021-08-22] MEDS ORDERED: BUPRENORPHINE HCL 150 MCG, BUPRENORPHINE HCL 75 MCG BC ONE (10:09)
[2021-08-22] MEDS ORDERED: NALOXONE HCL (KLOXXADO) 8 MG SPRAY NS PRN (10:09)
[2021-08-22] MEDS ORDERED: BUPRENORPHINE HCL 150 MCG FILM BC ONE (11:32)
[2021-08-22] MEDS ORDERED: BUPRENORPHINE HCL 75 MCG FILM BC ONE (11:32)
[2021-08-22] MEDS ORDERED: cloNIDine HCL 0.1 MG TABLET ONE (11:33)
[2021-08-22] MEDS ORDERED: cloNIDine HCL 0.1 MG TABLET PO PRN (14:09)
[2021-08-22] MEDS: hydrOXYzine PAMOATE 25 MG CAPSULE (FP) PO SCH ×3 (15:51→22:27)
[2021-08-22 17:19] LABS: HEMATOCRIT 42.4 % (35.4-49); HEMOGLOBIN 14.5 GM/dL (11.7-16.9); MCH 29.9 pg (25.7-33.7); MCHC 34.1 g/dl (32.0-35.9); MEAN CELL VOLUME 87.5 fl (80-96); MEAN PLT VOLUME 7.6 fl (7.5-11.1); PLATELET COUNT 297 10^3/uL (134-434); RBC 4.85 M/mm3 (4.00-5.60); RDW 15.2 % (11.9-15.9); WHITE BLOOD COUNT 9.8 K/mm3 (4.0-10.0)
[2021-08-22 17:33] LABS: ALBUMIN 4.3 g/dl (3.4-5.0); BLOOD UREA NITROGEN 18.9 mg/dL (7-18); CALCIUM 9.4 mg/dL (8.5-10.1)
[2021-08-22 17:36] LABS: CREATININE 0.8 mg/dL (0.55-1.3)
[2021-08-22 17:38] LABS: BILIRUBIN,TOTAL 0.6 mg/dL (0.2-1); TOT PROT 7.8 g/dl (6.4-8.2)
[2021-08-22] MEDS: diazePAM 5 MG TABLET PO SCH ×2 (19:15→22:27)
[2021-08-22] MEDS: MELATONIN 5 MG TABLETS PO SCH (22:26)
[2021-08-22] MEDS: THIAMINE HCL 100 MG TABLET (FP) PO SCH (22:27)
[2021-08-23] MEDS ORDERED: BUPRENORPHINE HCL 150 MCG, BUPRENORPHINE HCL 75 MCG BC PRN
[2021-08-23] MEDS: BUPRENORPHINE HCL 150 MCG, BUPRENORPHINE HCL 75 MCG BC SCH ×2 (05:23→18:23)
[2021-08-23] MEDS ORDERED: BUPRENORPHINE HCL 75 MCG FILM BC ONE ×3 (05:23→17:51)
[2021-08-23] MEDS ORDERED: BUPRENORPHINE HCL 150 MCG FILM BC ONE ×3 (05:23→17:50)
[2021-08-23] MEDS: hydrOXYzine PAMOATE 25 MG CAPSULE (FP) PO SCH ×4 (07:13→18:22)
[2021-08-23] MEDS: diazePAM 5 MG TABLET PO SCH ×3 (07:13→18:21)
[2021-08-23] MEDS: diazePAM 5 MG TABLET PO PRN ×3 (09:46→20:32)
[2021-08-23] MEDS: PRENATAL VITAMINS W/ FOLIC ACID TABLET (FP) PO SCH (10:53)
[2021-08-23] MEDS: METHOCARBAMOL 500 MG TABLET PO PRN (13:21)
[2021-08-23] MEDS ORDERED: BUPRENORPHINE HCL 150 MCG, BUPRENORPHINE HCL 75 MCG BC ONE (13:45)
[2021-08-24] MEDS: MELATONIN 5 MG TABLETS PO SCH ×2 (00:06→23:00)
[2021-08-24] MEDS: diazePAM 5 MG TABLET PO SCH ×4 (00:07→21:01)
[2021-08-24] MEDS: THIAMINE HCL 100 MG TABLET (FP) PO SCH ×2 (00:07→23:00)
[2021-08-24] MEDS: hydrOXYzine PAMOATE 25 MG CAPSULE (FP) PO SCH ×3 (00:07→09:17)
[2021-08-24] MEDS ORDERED: BUPRENORPHINE HCL 450 MCG FILM BC SCH (06:00)
[2021-08-24] MEDS: METHOCARBAMOL 500 MG TABLET PO PRN (09:17)
[2021-08-24] MEDS: PRENATAL VITAMINS W/ FOLIC ACID TABLET (FP) PO SCH (09:17)
[2021-08-24] MEDS: diazePAM 5 MG TABLET PO PRN ×3 (09:18→23:00)
[2021-08-24] MEDS ORDERED: hydrOXYzine PAMOATE 25 MG CAPSULE (FP) PO PRN (10:21)
[2021-08-24] MEDS ORDERED: NALOXONE HCL (KLOXXADO) 8 MG SPRAY NS PRN (10:33)
[2021-08-24] MEDS ORDERED: methaDONE HCL 10 MG TABLET ONE (12:43)
[2021-08-24] MEDS ORDERED: methaDONE HCL 10 MG TABLET (FOR DETOX USE ONLY) PO ONE (13:00)
[2021-08-24 19:07] LABS: SARS-CoV-2 NAA Not Detected (Not Detected)
[2021-08-25] MEDS ORDERED: diazePAM 5 MG TABLET PO SCH (06:00)
[2021-08-25] MEDS ORDERED: methaDONE HCL 10 MG TABLET (FOR DETOX USE ONLY) PO ONE ×2 (06:00→10:00)
[2021-08-25] MEDS ORDERED: BUPRENORPHINE/NALOXONE 4 MG/1 MG FILM PACKET SL SCH (06:00)
[2021-08-25] MEDS: diazePAM 5 MG TABLET PO PRN (09:02)
[2021-08-25 09:37] VITALS: BP 119/76; PULSE 81; TEMP 97.4
[2021-08-25] MEDS: PRENATAL VITAMINS W/ FOLIC ACID TABLET (FP) PO SCH (09:47)
[2021-08-26] MEDS ORDERED: BUPRENORPHINE/NALOXONE 8 MG/2 MG FILM PACKET SL ONE (06:00)
[2021-08-26] MEDS ORDERED: diazePAM 5 MG TABLET PO ONE (06:00)
[2021-08-26] MEDS ORDERED: methaDONE HCL 10 MG TABLET (FOR DETOX USE ONLY) PO ONE (10:00)
[2021-08-27] MEDS ORDERED: methaDONE HCL 10 MG TABLET (FOR DETOX USE ONLY) PO ONE (10:00)
== END 2021-08-25 10:00 | disposition left against medical advice (07) | DRG 770 ==
LOC: YASAS 08:31 → Y6N 11:18
PROVIDERS: ADMIT Allergy & Immunology; ATTEND Allergy & Immunology
PROC: HZ2ZZZZ Detoxification Services for Substance Abuse Treatment (ICD-10-PCS; principal; 2021-08-22)
DX: F11.23 Opioid dependence with withdrawal (principal); F13.230 Sedative, hypnotic or anxiolytic dependence with withdrawal, uncomplicated; F14.20 Cocaine dependence, uncomplicated; F17.210 Nicotine dependence, cigarettes, uncomplicated; B18.2 Chronic viral hepatitis C; Z88.8 Allergy status to other drugs, medicaments and biological substances; Z91.013 Allergy to seafood; Z59.00 Homelessness unspecified
CPT/HCPCS: 36415; 80053; 85027; 86780; 87811; C9803-CS; J0735; U0003; U0005